=== PATIENT | male | born 1960 | race Caucasian/White ===

== ENCOUNTER 2018-09-08 05:43 | Inpatient (IN) ==
--- NOTE | 2018-09-04 14:08 | Anesthesiology Consultation ---
Date of Service September 04, 2018 Assessment & Plan (1) Encounter for pre-operative examination: Chart Review Chart Review: Acceptable Risk for Surgery and Patient seen in Pre Admission Testing Teaching & Discussion Instructed NPO after midnight before surgery, except medications with 15 cc of water. Medication instructions provided according to the PAT guidelines. History Surgery Operation Date: 09/08/18 07:55 Proposed Procedures p Left Ankle Removal of STAR Total Ankle Hardware, - Alvaro Mock DO s Fusion of Tibiotalar IT with Femoral Head Allograft, Subtalar Fusion Implantation Synthes Retrocalcaneal Nail, Application of Platelet-Rich Plasma - Alvaro Mock DO Height/Weight Height: 6 ft 3 in Weight: 100.3 kg Allergies Allergy/AdvReac Type Severity Reaction Status Date / Time pet dander AdvReac Unknown nasal Uncoded 09/04/18 13:34 congestion pollen AdvReac Unknown sneezing, Uncoded 09/04/18 13:34 watery eyes Medications Home Medications Medication Instructions Recorded Confirmed Last Taken multivitamin [Multiple Vitamins] 1 tab PO DAILY 09/04/18 09/04/18 Unknown Past Medical History Medical History Back problem 3 bulging discs L3, 4, 5 Fungus infection Fungal infection (not tinea) on exterior L cheek. Completed treatment and has had f/u with PCP. Residual annular erythema noted on L cheek. Nausea and vomiting after administration of anesthetic agent Osteoarthritis Seasonal allergies Past Surgical History Surgical History H/O shoulder surgery History of ankle surgery MULTIPLE / LEFT History of arthroscopy of left knee History of elbow surgery LEFT/HARDWARE AND SINCE REMOVED History of left ankle joint replacement History of repair of anterior cruciate ligament of left knee Past Anesthesia History No Family Hx of Anesthesia Complications and Other PONV History of PONV Yes Motion Sickness Screening History of Motion Sickness: No Social History Smoking Status: Never smoker Do You Dip or Chew Tobacco: No Hx Alcohol Use: Yes Alcohol type: beer alcohol intake frequency: other Alcohol Intake Frequency Comment: 30 PACK IN A WEEK, SLOWING DOWN Hx Substance Use: No substance use type: does not use Exercise / Class Metabolic Activity II 4-5 Yardwork/Stairs/Walk up hill (Denies CP or SOB with stairs, just lots of ankle pain.) Review of Systems Pt denies any recent chest pain, shortness of breath, palpitations, cough, fever or URI. Physical Exam Vital Signs BP: 121/79 P: 68bpm SPO2: 96% RA T: 97.6 F R: 16 ENMT Mouth: + dental restorations (Fake front upper R tooth) and + chipped teeth (front L upper small chip); no loose teeth Thyromental Distance: > or= 3.5 Finger Breadths (4) Mallampati Class: I Neck normal visual inspection and + facial hair (short trimmed goatee); neck extension not limited Respiratory normal respiratory effort Auscultation: lungs clear to auscultation bilaterally Cardiovascular Rate/Rhythm: regular rate and regular rhythm Heart Sounds: no murmur Vessels: no carotid bruit Extremities: no edema Skin ~3x5cm annular erythema on L cheek. Testing Electrocardiogram Date: 09/04/18 Findings: + NSR @ (61) Laboratory Results 09/04/18 14:30 Urine Color Yellow 09/04/18 Unknown Urine Appearance Clear (Clear) 09/04/18 Unknown Urine pH 8.0 (4.5-7.5) H 09/04/18 Unknown Ur Specific [place] 1.014 (1.000-1.030) 09/04/18 Unknown Urine Protein Negative (Negative) 09/04/18 Unknown Urine Glucose (UA) Negative (Negative) 09/04/18 Unknown Urine Ketones Negative (Negative) 09/04/18 Unknown Urine Nitrite Negative (Negative) 09/04/18 Unknown Ur Leukocyte Esterase Negative (Negative) 09/04/18 Unknown
[2018-09-04 15:44] LABS: Basophils # (auto) 0.04 K/uL (0-0.2); Basophils % (auto) 0.5 %; Eosinophils # (auto) 0.24 K/uL (0-0.5); Eosinophils % (auto) 3.2 %; Hematocrit (blood only) 45.5 % (42-52); Immature Granulocytes # (auto) 0.02 K/uL (0.00-0.02); Immature Granulocytes % (auto) 0.3 %; Lymphocytes # (auto) 1.91 K/uL (1.2-3.4); Lymphocytes % (auto) 25.6 %; Mean Corpuscular Hgb Conc 35.2 g/dL (32-36); Mean Corpuscular Volume 85.7 fL (80-100); Mean Platelet Volume 9.9 fL (7.4-10.4); Monocytes # (auto) 0.54 K/uL (0.11-0.59); Monocytes % (auto) 7.2 %; Neutrophils # (auto) 4.71 K/uL (1.4-6.5); Neutrophils % (auto) 63.2 %; Platelet Count 264 K/uL (130-400); RDW Coefficient of Variation 12.7 % (11.5-14.5); Red Blood Count 5.31 M/uL (4.7-6.1); White Blood Count 7.46 K/uL (4.8-10.8)
[2018-09-04 15:50] LABS: Appearance Urine Clear (Clear); Bilirubin Urine Negative (Negative); Blood Urine Negative (Negative); Color Urine Yellow; Glucose Urine UA Negative (Negative); Ketones Urine Negative (Negative); Leukocyte Esterase Urine Negative (Negative); Nitrite Urine Negative (Negative); Protein Urine Negative (Negative); Specific Gravity Urine 1.014 (1.000-1.030); Urobilinogen Urine Negative (Negative)
--- NOTE | 2018-09-05 13:35 | History & Physical Report ---
Date of Service September 05, 2018 Assessment & Plan (1) Aseptic loosening of prosthetic joint: Schedule left ankle removal STAR total ankle replacement, left ankle fusion with femoral head allograft, subtalar joint fusion, implantation of Synthes retrocalcaneal nail, application platelet rich plasma. All potential risks, benefits, complications, alternatives, and rehab have been discussed with the patient and he wishes to proceed. He will be scheduled for 4.5.19 with ASA 81 mg BID x 4 wks for DVT prophylaxis. (2) Ankle pain, left: (3) Osteoarthritis of left subtalar joint: History of Present Illness Chief Complaint: left ankle pain Primary Care Provider: Filiberto Lackey This is a patient that underwent a left STAR total ankle replacement in 2011. Recently, he started having increased left ankle pain. X-rays, CT, and bone scans have noted loosening of the components of the ankle replacement. He is now being set up for surgical removal of the implants and left ankle fusion. Allergies Allergy/AdvReac Type Severity Reaction Status Date / Time pet dander AdvReac Unknown nasal Uncoded 09/04/18 13:34 congestion pollen AdvReac Unknown sneezing, Uncoded 09/04/18 13:34 watery eyes Home Medications Home Medications Medication Instructions Recorded Confirmed Type multivitamin [Multiple Vitamins] 1 tab PO DAILY 09/04/18 09/04/18 History Past Med/Surg History Medical History Back problem 3 bulging discs L3, 4, 5 Fungus infection Fungal infection (not tinea) on exterior L cheek. Completed treatment and has had f/u with PCP. Residual annular erythema noted on L cheek. Nausea and vomiting after administration of anesthetic agent Osteoarthritis Seasonal allergies Surgical History H/O shoulder surgery History of ankle surgery MULTIPLE / LEFT History of arthroscopy of left knee History of elbow surgery LEFT/HARDWARE AND SINCE REMOVED History of left ankle joint replacement History of repair of anterior cruciate ligament of left knee Social History Preferred Language: Bruneian Communication Ability: Effective Lunchroom Monitor Required: No Beliefs That Will Affect Care: None Current Living Situation: Spouse Other Information That Helps Us Care for You: No Feels Safe at Home: Yes Smoking Status: Never smoker Hx Alcohol Use: Yes Hx Substance Use: No Physical Exam Constitutional: well developed and well nourished; no acute distress ENMT: external ear and nose normal, oropharynx normal Neck: trachea midline, no thyromegaly Respiratory: normal respiratory effort, lungs clear to auscultation Cardiovascular: Rate/Rhythm: regular rate and regular rhythm Heart Sounds: normal S1 and normal S2 Gastrointestinal (Abdomen): normal bowel sounds, soft, nontender, no hepatosplenomegaly Musculoskeletal: Shoulder: + joint line tenderness (left ankle: anterior and posterior ankle. Pain with PROM and AROM. ) Ankle: + effusion (left ankle), + surgical incision (well healed anterior left ankel incision) and + joint line tenderness (left ankle: anterior and posterior ankle. Pain with PROM and AROM. ); ankle normal to inspection, no deformity, no skin erythema and no ecchymosis Neurologic: normal touch/pain/proprioception Psychiatric: A+Ox3, euthymic affect Lymphatic: no cervical or axillary lymphadenopathy
[2018-09-08] MEDS ORDERED: LR 15ML/HR IV SCH (06:00)
[2018-09-08] MEDS ORDERED: SCOPOLAMINE 1.5 MG TDSY TD SCH (06:00)
[2018-09-08] MEDS ORDERED: ROPIVACAINE 0.5% 5 MG/ML 30 ML VIAL ONE (06:36)
[2018-09-08] MEDS ORDERED: PROPOFOL IV EMULSION 10 MG/ML 20 ML VIAL IV ONE (06:45)
[2018-09-08] MEDS ORDERED: MIDAZOLAM HCL 1 MG/ML 2ML VIAL ONE (06:45)
[2018-09-08] MEDS ORDERED: fentaNYL citrate 100 MCG/2 ML VIAL ONE ×3 (06:45→12:35)
[2018-09-08] MEDS ORDERED: CEFAZOLIN 3000MG 72.5 ML IV ONE (07:44)
[2018-09-08] MEDS ORDERED: BACITRACIN INJ 50,000 UNIT VIAL ONE (08:07)
[2018-09-08] MEDS ORDERED: THROMBIN 5000 UNITS KIT ONE ×2 (08:07→10:15)
[2018-09-08] MEDS ORDERED: CALCIUM CHLORIDE 10% 10 ML SYR IV ONE (08:08)
--- NOTE | 2018-09-08 08:43 | History & Physical Bridge Note ---
Date of Service September 08, 2018 History & Physical Bridge Note I have examined the patient, reviewed the History & Physical and in the interval since the performance of the History & Physical I have noted the following changes of clinical significance: no changes noted
[2018-09-08] MEDS ORDERED: BISACODYL 10 MG SUPP PR PRN (08:46)
[2018-09-08] MEDS ORDERED: METOCLOPRAMIDE HCL INJ 5 MG/ML 2 ML VIAL IV PRN (08:46)
[2018-09-08] MEDS ORDERED: ALUMINUM/MAGNESIUM SUSP 30 ML UDC PO PRN (08:46)
[2018-09-08] MEDS ORDERED: MAGNESIUM HYDROXIDE SUSP 30 ML UDC PO PRN (08:46)
[2018-09-08] MEDS ORDERED: NALOXONE HCL 0.4 MG/1 ML VIAL/CARP IV PRN (08:46)
[2018-09-08] MEDS ORDERED: ONDANSETRON INJ 2 MG/ML 2 ML VIAL IV PRN ×2 (08:46→09:16)
[2018-09-08] MEDS ORDERED: TAMSULOSIN HCL 0.4 MG CAP PO PRN (08:51)
[2018-09-08] MEDS ORDERED: MoRPHine SULFATE 2 MG/ML CARP IV PRN (08:56)
[2018-09-08] MEDS ORDERED: MULTIVITAMIN TAB PO SCH (09:00)
[2018-09-08] MEDS ORDERED: NO NSAIDS SCH (09:00)
[2018-09-08] MEDS ORDERED: fentaNYL citrate 100 MCG/2 ML VIAL IV PRN (09:16)
[2018-09-08] MEDS ORDERED: HYDROmorphone INJ 1 MG/ML SYRINGE IV PRN (09:16)
[2018-09-08] MEDS ORDERED: PROMETHAZINE HCL 12.5 MG in SODIUM CHLORIDE 0.9% 50 ML IV PRN (09:16)
[2018-09-08] MEDS ORDERED: ePHEDrine sulfate 50 MG/ML AMP IV PRN (09:16)
[2018-09-08] MEDS ORDERED: ATROPINE SULFATE 0.1 MG/ML 10ML SYR IV PRN (09:16)
[2018-09-08] MEDS ORDERED: DEXAMETHASONE SOD INJ 4 MG/ML VIAL ONE (11:10)
[2018-09-08] MEDS ORDERED: ONDANSETRON INJ 2 MG/ML 2 ML VIAL ONE ×2 (11:10→13:22)
[2018-09-08] MEDS ORDERED: CEFAZOLIN 250 MG/ML 1 GM VIAL ONE (13:22)
--- NOTE | 2018-09-08 13:43 | Fluoroscopy Report ---
INTRAOPERATIVE RADIOGRAPHS CLINICAL HISTORY: Left ankle surgery. Hardware removal. Fluoroscopy time: 154 seconds. FINDINGS: 4 spot fluoroscopic views of the left ankle are correlated with radiographs dated 2. There is chronic posttraumatic deformity of the distal fibula. A buttress plate along the lateral fibular cortex is unchanged dating back to 2011. Cortical lag screws previously seen in the medial ma lleolus have been removed. A left ankle arthroplasty device has been removed. An intramedullary nail is now seen extending from the mid to distal tibial shaft to the base of the calcaneus. There are 2 c ortical lag screws present within the tibial component of the nail, and 3 cortical lag screws are pre sent within the dorsal tarsal bones. The orthopedic hardware appears intact. Soft tissue edema and cruz bcutaneous gas are present within the hindfoot. IMPRESSION: Intraoperative images involving the left ankle as above. Electronically signed by: Ramon Javier M.D. 09/08/2018 1:42 PM
--- NOTE | 2018-09-08 14:11 | Post Operative Brief Note ---
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: (2) Osteoarthritis of left subtalar joint: (3) left distal tibial bone cyst (4) left talus bone cyst (5) retained hardware medial malleolus x2 screws (6) left ankle pain Procedure Operation Date: 09/08/18 07:55 Actual Procedures p Left Ankle Removal of STAR Total Ankle replacement hardware, Separate Incision Hardware Removal Screws x2 Medial Malleolus (Left) - Alvaro Mock DO s Tibiotalar Fusion with femoral head allograft/autograft/PRP, Subtalar Fusion with autograft/PRP, Femoral Head Allograft, Implantation Retrocalcaneal Nail, Application of Platelet-Rich Plasma(Left) - Alvaro Mock DO Surgeon Alvaro Mock DO Inspector [employer] Typewriter Wayne Ulloa PA-C Estimated Blood Loss 300 Findings Consistent with Post-Op Diagnosis Specimens Aerobic anaerobic Gram stain distal tibial cyst. Synovium and joint capsule left ankle. Left total ankle replacement components. Drains Hemovac Drain (10 FR TROCAR) Anesthesia Type General Regional Complications none Disposition Accompanied Patient To Recovery: No Disposition: Recovery Room Overlapping Procedure I was present for: the critical portions of procedure. I was immediately available: during the entire case.
--- NOTE | 2018-09-08 14:58 | XRay Report ---
XR ankle LT min 3V routine CLINICAL HISTORY: post op left ankle fusion COMPARISON: Left ankle radiographs May 05, 2012. FINDINGS: Fibular plate and screws are noted. Intramedullary linda fixating the subtalar and tibiotal ar joints is noted. A screw fixating the subtalar joint is present. The hardware is intact. There are surgical drain. There are skin petra. There are no unexpected radiopaque foreign bodies. IMPRESSION: Expected findings following left ankle internal fixation. Electronically signed by: Brandt Sanches M.D. 09/08/2018 2:56 PM
--- NOTE | 2018-09-08 15:22 | Anesthesiology Progress Note ---
Date of Service September 08, 2018 Anesthesia Post Procedure Vital Signs Vital Signs: Temp Pulse Pulse Resp BP BP Pulse Ox 09/08/18 15:15 74 9 L 144/85 H 100 09/08/18 15:10 84 18 145/87 H 99 09/08/18 15:05 80 14 138/89 100 09/08/18 15:00 78 13 135/92 100 09/08/18 14:57 72 6 L 145/88 H 100 09/08/18 14:55 77 13 150/97 H 100 09/08/18 14:54 36.6 C 82 16 145/88 H 100 09/08/18 14:51 77 21 167/105 H 99 09/08/18 14:50 82 20 99 09/08/18 14:46 83 16 155/91 H 100 09/08/18 14:45 77 19 100 09/08/18 14:40 74 8 L 144/92 H 100 09/08/18 14:35 76 9 L 147/93 H 100 09/08/18 14:31 71 12 149/91 H 100 09/08/18 14:30 79 16 100 09/08/18 14:26 77 20 153/95 H 100 09/08/18 14:25 82 15 100 09/08/18 14:20 83 12 154/98 H 100 09/08/18 14:17 83 18 125/84 100 09/08/18 14:16 36.4 C L 86 84 19 125/84 100 09/08/18 06:30 37 C 63 16 112/76 94 Pain Intensity Left Ankle: Pain Intensity: 4 Notes Mental Status: alert / awake / arousable and participated in evaluation Patient Amnestic to Procedure: Yes Nausea / Vomiting: adequately controlled Pain: adequately controlled Airway Patency, RR, SpO2: stable & adequate BP & HR: stable & adequate Hydration State: stable & adequate Anesthetic Complications: no major complications apparent and Pt Satisfied with anesthetic care Notes: block is functioning well
[2018-09-08] MEDS ORDERED: CHECK SCOPOLAMINE PATCH PLACEMENT SCH (16:00)
[2018-09-08] MEDS ORDERED: SODIUM CHLORIDE 0.9% 1000ML 1,000 ML IV SCH (16:00)
[2018-09-08] MEDS ORDERED: CEFAZOLIN 3000MG 72.5 ML IV SCH (17:00)
[2018-09-08 20:13] LABS: Hematocrit (blood only) 41.8 % (42-52); Hemoglobin 14.5 g/dL (14.0-18.0)
[2018-09-08] MEDS ORDERED: SENNA 8.6 MG TAB PO SCH (21:00)
[2018-09-08] MEDS: ASPIRIN 81 MG ECTAB PO SCH (21:23)
[2018-09-08] MEDS: DOCUSATE SODIUM 100 MG CAP PO SCH (21:23)
[2018-09-08] MEDS: ACETAMINOPHEN 500 MG TAB PO SCH (21:23)
[2018-09-09] MEDS: ACETAMINOPHEN 500 MG TAB PO SCH ×2 (05:40→12:51)
[2018-09-09 06:16] LABS: Hematocrit (blood only) 36.4 % (42-52); Hemoglobin 12.5 g/dL (14.0-18.0); Mean Corpuscular Hgb Conc 34.3 g/dL (32-36); Mean Corpuscular Volume 86.9 fL (80-100); Mean Platelet Volume 9.5 fL (7.4-10.4); Platelet Count 222 K/uL (130-400); RDW Coefficient of Variation 12.9 % (11.5-14.5); RDW Standard Deviation 41.3 fL (36.4-46.3); Red Blood Count 4.19 M/uL (4.7-6.1); White Blood Count 10.77 K/uL (4.8-10.8)
[2018-09-09 06:35] LABS: BUN Creatinine Ratio 14.3 (10-20); Calcium 8.1 mg/dl (8.5-10.1); Creatinine Clr Calc Pharmacy 113.3 ml/min; Est GFR (African American) 105.2; Est GFR (Non-African American) 90.8
[2018-09-09] MEDS: OXYCODONE HCL IR 5 MG TAB (IMMEDIATE RELEASE) PO PRN ×3 (07:56→12:51)
--- NOTE | 2018-09-09 08:30 | Orthopedic Progress Note ---
Date of Service September 09, 2018 Assessment & Plan (1) Ankle pain, left: Plan for PT and OT today. Nonweightbearing left lower extremity. Continue DVT prophylaxis with aspirin p.o. twice daily, SCDs and TANIKA hose on the opposite leg. Pain management with oxycodone and morphine currently. Discharge planning-plan for discharge to home today. Subjective Postop day 1 status post Tibiotalar Fusion, Subtalar Fusion, Femoral Head Allograft, Implantation Retrocalcaneal Nail, Application of Platelet-Rich Plasma Patient is currently lying in bed and is awake and alert. He has no complaints at this time. He states that the block is starting to wear off but his pain is minimal. He denies shortness of breath, chest pain, lightheadedness, nausea or vomiting. He is hoping to go home today. Physical Exam Vital Signs (Past 24 Hours): Last Vital Signs Temp 36.8 C 09/09/18 07:42 Pulse 67 09/09/18 07:42 Resp 18 09/09/18 07:42 BP 106/68 09/09/18 07:42 Pulse Ox 97 09/09/18 07:42 Physical Exam: Dressing/splint is clean dry and intact. Toes are pink and warm and mobile. He has decreased sensation in his toes due to his current block still working. He states that he can feel some slight pain on the dorsum of the foot that started this morning noting that his block is starting to slowly wear off. Latest drainage from his Hemovac was 50 mL's. Results & Data Laboratory Results 09/09/18 09/09/18 09/09/18 Range/Units 06:04 06:04 06:04 WBC 10.77 (4.8-10.8) K/uL RBC 4.19 L (4.7-6.1) M/uL Hgb 12.5 L (14.0-18.0) g/dL Hct 36.4 L (42-52) % MCV 86.9 (80-100) fL MCH 29.8 (25-34) pg MCHC 34.3 (32-36) g/dL RDW Std Deviation 41.3 (36.4-46.3) fL RDW Coeff of Jannette 12.9 (11.5-14.5) % Plt Count 222 (130-400) K/uL MPV 9.5 (7.4-10.4) fL Sodium 139 (136-145) mmol/L Potassium 4.0 (3.5-5.1) mmol/L Chloride 106 (98-107) mmol/L Carbon Dioxide 27 (21-32) mmol/L Anion Gap 6.0 (3-11) BUN 13 (7-18) mg/dl Creatinine 0.93 (0.6-1.4) mg/dl Est Cr Clr Drug Dosing 113.3 ml/min Est GFR ( Amer) 105.2 Est GFR (Non-Af Amer) 90.8 BUN/Creatinine Ratio 14.3 (10-20) Glucose 109 H (70-99) mg/dl Calcium 8.1 L (8.5-10.1) mg/dl Hepatitis C Ab Screen Pending 09/08/18 Range/Units 20:05 WBC (4.8-10.8) K/uL RBC (4.7-6.1) M/uL Hgb 14.5 (14.0-18.0) g/dL Hct 41.8 L (42-52) % MCV (80-100) fL MCH (25-34) pg MCHC (32-36) g/dL RDW Std Deviation (36.4-46.3) fL RDW Coeff of Jannette (11.5-14.5) % Plt Count (130-400) K/uL MPV (7.4-10.4) fL Sodium (136-145) mmol/L Potassium (3.5-5.1) mmol/L Chloride (98-107) mmol/L Carbon Dioxide (21-32) mmol/L Anion Gap (3-11) BUN (7-18) mg/dl Creatinine (0.6-1.4) mg/dl Est Cr Clr Drug Dosing ml/min Est GFR ( Amer) Est GFR (Non-Af Amer) BUN/Creatinine Ratio (10-20) Glucose (70-99) mg/dl Calcium (8.5-10.1) mg/dl Hepatitis C Ab Screen
[2018-09-09] MEDS: DOCUSATE SODIUM 100 MG CAP PO SCH (08:54)
[2018-09-09] MEDS: ASPIRIN 81 MG ECTAB PO SCH (08:55)
[2018-09-09] MEDS ORDERED: MULTIVITAMIN TAB PO SCH (09:00)
--- NOTE | 2018-09-09 09:56 | Anesthesiology Progress Note ---
Date of Service September 09, 2018 Anesthesia Post Procedure Vital Signs Vital Signs: Temp Pulse Pulse Resp BP BP Pulse Ox 09/09/18 07:42 36.8 C 67 18 106/68 97 09/09/18 03:49 36.6 C 75 18 102/66 98 09/08/18 22:49 36.8 C 79 18 110/70 95 09/08/18 18:33 36.7 C 93 H 18 133/83 98 09/08/18 17:27 36.5 C 88 20 129/87 100 09/08/18 16:35 36.5 C 83 18 144/85 H 100 09/08/18 16:00 36.5 C 79 16 136/85 99 09/08/18 15:30 36.4 C L 88 16 125/86 95 09/08/18 15:15 74 9 L 144/85 H 100 09/08/18 15:10 84 18 145/87 H 99 09/08/18 15:05 80 14 138/89 100 09/08/18 15:00 78 13 135/92 100 09/08/18 14:57 72 6 L 145/88 H 100 09/08/18 14:55 77 13 150/97 H 100 09/08/18 14:54 36.6 C 82 16 145/88 H 100 09/08/18 14:51 77 21 167/105 H 99 09/08/18 14:50 82 20 99 09/08/18 14:46 83 16 155/91 H 100 09/08/18 14:45 77 19 100 09/08/18 14:40 74 8 L 144/92 H 100 09/08/18 14:35 76 9 L 147/93 H 100 09/08/18 14:31 71 12 149/91 H 100 09/08/18 14:30 79 16 100 09/08/18 14:26 77 20 153/95 H 100 09/08/18 14:25 82 15 100 09/08/18 14:20 83 12 154/98 H 100 09/08/18 14:17 83 18 125/84 100 09/08/18 14:16 36.4 C L 86 84 19 125/84 100 Pain Intensity Left Ankle: Pain Intensity: 4 Notes Mental Status: alert / awake / arousable and participated in evaluation Patient Amnestic to Procedure: Yes Nausea / Vomiting: adequately controlled Pain: adequately controlled Airway Patency, RR, SpO2: stable & adequate BP & HR: stable & adequate Hydration State: stable & adequate Anesthetic Complications: no major complications apparent and Pt Satisfied with anesthetic care
--- NOTE | 2018-09-12 02:06 | Operative Report ---
DATE OF OPERATION: 09/08/2018 PREOPERATIVE DIAGNOSES: 1. 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 2. Degenerative joint disease, subtalar joint. 3. Tibial bone cyst. 4. Talar bone cyst. 5. Retained hardware x2 screws in the medial malleolus. 6. Left ankle pain. POSTOPERATIVE DIAGNOSES: 1. 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 2. Degenerative joint disease, subtalar joint. 3. Tibial bone cyst. 4. Talar bone cyst. 5. Retained hardware x2 screws in the medial malleolus. 6. Left ankle pain. PROCEDURE: 1. Left ankle revision fusion with femoral head allograft/autograft/platelet rich plasma concentrate. 2. Subtalar fusion with autograft/platelet rich plasma concentrate. 3. Application of retrocalcaneal nail. 4. Removal of total ankle components, left ankle. 5. Removal of screws x2 from the medial malleolus. 6. Application of platelet rich plasma concentrate soft tissues. SURGEON: Alvaro Mock DO INDUSTRIAL/ORGANIZATIONAL PSYCHOLOGIST: Wayne Ulloa PA-C who was present for patient positioning, sterile prep and drape, management of retractors and instruments. He was present through the critical portions of the case including wound closure, application of sterile dressing and transport of the patient to recovery. ANESTHESIA: General LMA with popliteal and adductor canal block. SPECIMENS: STAR total ankle components. Aerobic, anaerobic, Gram stain from the tibial bone cyst. DRAINS: Hemovac x1. COMPLICATIONS: None. BLOOD LOSS: 300 mL PERTINENT HISTORY: versus a 58-year-old gentleman who has undergone a successful STAR total ankle replacement approximately 7-8 years prior. He had high satisfaction rate for the first 4-5 years and then developed progressive worsening pain despite bracing and other conservative measures. He was seen in second opinion at [facility] and the provider recommended either revision total ankle replacement versus removal of hardware and ankle fusion and subtalar fusion. The patient opted to have the retrocalcaneal nail placed with fusion of the tibiotalar and subtalar joints. The patient then presented back to clinic in [place], at which point I had lengthy discussion with the patient and we decided to proceed with the above noted procedure as indicated. All potential risks, benefits, complications, alternatives, rehab, potential for incomplete relief of symptoms, need for further surgery, DVT, PE, , persistent pain, swelling, scarring, weakness, neurovascular injury, wound complications, hardware failure, nonunion, malunion were discussed with the patient. The patient decided to proceed with the procedure as indicated. DESCRIPTION OF PROCEDURE: The patient had a popliteal block and adductor canal block in the preop holding area and taken to the operative suite, placed supine on the operating room table. After I reviewed consent and wished operative site, the patient was anesthetized, LMA was placed. Tourniquet was placed high on left thigh over cast padding. Left lower extremity was sterilely prepped and draped in the usual fashion, elevated and exsanguinated with Esmarch bandage, tourniquet inflated to 350 mmHg. Next, a #15 blade scalpel was used to make an incision over the medial malleolus. Incision was deepened through subcutaneous tissue. Meticulous hemostasis was achieved with electrocautery. The 2 screws in the medial malleolus were then removed with a screwdriver. The holes were curetted and irrigated with sterile saline until clear. Next, a #15 blade scalpel was used to make an incision along the lateral aspect of the hindfoot centered over the subtalar joint from the base of the fourth metatarsal to the base of the fibula. The incision was deepened through subcutaneous tissue. Meticulous hemostasis was achieved with cautery. Full thickness skin flaps were developed. The incision was then deepened through the subcutaneous tissue to the level of the extensor digitorum brevis, which was then split and the subtalar joint was then opened #15 blade scalpel. Careful dissection was performed through develop soft tissue planes and then Harjeet rakes were placed in the incision opening the subtalar joint. Next, the subtalar joint was entered and a lamina mica spreader was placed to open the subtalar joint. Subtalar joint surfaces were then fully prepared and prepped using a rongeur and curettes to remove any residual articular cartilage down to the level of the subchondral bone. Next, this was irrigated with sterile saline until clear and the joint surface was then further prepared using a 2 mm drill bit to make multiple drill holes in the subtalar joint and a 6-mm osteotome was then used to fish-scale the articular surfaces to increase surface area. Next, attention then directed to the anterior aspect of the ankle, #15 blade scalpel was used to make an incision along the anterior incision site of the prior ankle replacement incision was deepened through subcutaneous tissue. Meticulous hemostasis was achieved with electrocautery and the scar was then dissected through to the level of the fascia. The fascia was then incised over the extensor hallucis longus, which was then retracted laterally. Careful dissection was then performed with Metzenbaum scissors to define the neurovascular bundle, including the dorsalis pedis and deep peroneal nerve. He was then transported laterally and retracted with a house retractor. Next, the superficial peroneal nerve was also marked with marking pen, a skin marker and then retracted laterally. Next, the joint capsule was then incised in line with skin incision and then careful dissection was performed with #15 blade scalpel, elevating skin flaps, medial and lateral. There is a thickened joint capsule, which was then debrided with a #15 blade scalpel and a large bone cyst was encountered in the anterior distal aspect of the tibia. This was then taken for specimen and sent for aerobic and anaerobic, Gram stain, cultures. After the cyst was evacuated, it was curettaged with a moderate sized curette and irrigated with sterile saline until clear. The components noted to be stable, a large cyst. Next, the talar component was then loosened with a 4 mm osteotome and mallet, elevated and removed. At the end of the talus was noted be a large bone cyst. These were curetted with a moderate-sized curette and irrigated until clear. Next, the tibial base plate was then elevated with a 4 mm osteotome and mallet and then removed. These components and passed off. The polyethylene was also removed with a Desmond. Next, the joint surface was then curetted until a stable bone was encountered and a careful dissection was performed to free soft tissue medially and laterally and then 2 Army-Pooler retractors were placed in the anterior incision followed by use of sequential hip reamers to create a spherical space. A 47 mm femoral head allograft was then opened and placed in sterile saline for the 3-time soaking procedure. Next, a caliper was used to measure the head, confirming the size and then sequential reaming was performed in the tibiotalar space with a 44 mm reamer and expanding to a 48 mm reamer. The reamings from the 47 and a 48 mm hip reamers were then saved for autograft. Next, multiple 2 mm drill holes were drilled circumferentially around spherical femoral head allograft. Platelet rich plasma concentrate was harvested from the patient's venous blood and prepared as per protocol. Next, the PRP was then injected into the holes of the femoral head allograft and then a slurry of autograft was placed around the femoral head allograft and then also in the space in the tibiotalar joint. This fluid was also placed into the subtalar joint. The platelet rich plasma concentrate was also placed in the subtalar joint. Next, the femoral head allograft was then impacted into the tibiotalar fusion space and noted anatomic reduction and fixation with neutral alignment of the ankle at 90 degrees. Slight dorsiflexion was performed so actually it was dorsiflexed approximately 3 degrees from neutral dorsiflexion. Next, a #15 blade scalpel was used to make an incision in the plantar aspect of the calcaneus under live fluoroscopic assistance. The foot was held in neutral alignment at the subtalar joint to allow for eventual valgus, placed in by the components and then a guide pin was placed through the calcaneus through the talus, through the subtalar joint, into the tibiotalar joint through the femoral head allograft and then in the tibia centered in the AP and lateral projections. Once this was accomplished, an opening reamer was then performed using protective guide through the plantar aspect of the heel and this was then driven up to the level of the residual talar bone. Next, a 5-mm drill was then passed through the allograft into the tibia under live fluoroscopic assistance. This was then followed by placement of a ball-tip guide linda and sequential up reaming was performed to 13.5 mm and a Synthes 12 mm x 240 mm retrocalcaneal nail was placed under live fluoroscopic assistance, confirmed in AP and lateral projections. Once this was set at appropriate level of the plantar aspect of the calcaneus, a #15 blade scalpel was used to make an incision in the posterior aspect of the calcaneus followed by placement of an 80 mm spiral blade followed by placement of a 6 mm screw locking the calcaneal portion of the fusion. Next, using an impaction using a large mallet, subtalar joint was then compressed and a talar locking screw was placed using the locking jig and the small stab incision in the posterior lateral aspect of the ankle. This was performed in live fluoroscopic assistance. Again, the compression was then performed using a large mallet to compress the tibiotalar joint and the femoral head allograft. Next, two locking screws were placed from medial to lateral placed in a live fluoroscopic assistance through 2 small stab incisions medially. Once the construct was completely compressed and aligned anatomic reduction and fixation of the tibiotalar, subtalar and femoral head allograft had all been achieved. Gentle irrigation performed with sterile normal saline and then a final irrigation, the final implantation of residual bone grafting anteriorly, medially, laterally at the tibiotalar joint and then also the subtalar joint was then performed followed by application platelet rich plasma concentrate. Next, a #10-Kyrgyz single lumen Hemovac drain was placed in the anterior aspect of the ankle joint capsule exiting percutaneously the anterior aspect of the ankle slightly proximal to the incision. The joint capsule was closed using #1 Vicryl, followed by application platelet rich plasma concentrate and then closure of the fascia anterior with 2-0 Vicryl. Next, the dermis was closed using buried interrupted 3-0 Monocryl and a running severed subcuticular Monocryl was then placed followed by Dermabond for the skin anteriorly. The lateral incision was then addressed. Extensor digitorum brevis was then closed using 2-0 Vicryl. The dermis was closed using 3-0 Vicryl, skin closed with 4-0 nylon. Next, the jig was removed from the plantar aspect foot and a locking cap was placed plantar, followed by irrigation skin petra. The posterior skin incision was then irrigated with sterile saline injected with PRP and the closed using skin petra. Final radiographs were obtained in AP and lateral projections and the sterile compressive dressing and bulky Lew Frank plaster splint was applied overwrapped with an Howard wrap. The tourniquet was released, the patient was awakened and taken to recovery in stable condition. I attest to the content of the Intraoperative Record and any orders documented therein. Any exception s are noted below.
--- NOTE | 2018-09-21 18:53 | Discharge Summary ---
Date of Service September 21, 2018 Admission HPI Per Admitting Provider This is a patient that underwent a left STAR total ankle replacement in 2011. Recently, he started having increased left ankle pain. X-rays, CT, and bone scans have noted loosening of the components of the ankle replacement. He is now being set up for surgical removal of the implants and left ankle fusion. Principal Diagnosis left ankle failed total ankle replacement Discharge Exam Constitutional well developed and well nourished; no acute distress ENMT external ear and nose normal, oropharynx normal Neck trachea midline, no thyromegaly Respiratory normal respiratory effort, lungs clear to auscultation Cardiovascular Rate/Rhythm: regular rate and regular rhythm Heart Sounds: normal S1 and normal S2 Gastrointestinal (Abdomen) normal bowel sounds, soft, nontender, no hepatosplenomegaly Musculoskeletal Ankle: + surgical incision (well healed anterior left ankel incision); ankle normal to inspection, no deformity, no skin erythema and no ecchymosis Left ankle: splint is clean/dry/intact. Well aligned left ankle. Neurologic normal touch/pain/proprioception Psychiatric A+Ox3, euthymic affect Lymphatic no cervical or axillary lymphadenopathy Discharge Data Allergies Allergy/AdvReac Type Severity Reaction Status Date / Time pet dander AdvReac Mild nasal Uncoded 09/08/18 06:27 congestion pollen AdvReac Mild sneezing, Uncoded 09/08/18 06:27 watery eyes Consultations 09/08/18 08:48 Consult Case Management - Discharge Planning Routine Procedures Performed Operation Date: 09/08/18 07:55 Actual Procedures p Left Ankle Removal of STAR Total Ankle Hardware, Seperate Incision Hardware Removal Screws x2 Medial Malous (Left) - Alvaro Mock DO s Tibiotalar Fusion, Subtalar Fusion, Femoral Head Allograft, Implantation Retrocalcaneal Nail, Application of Platelet-Rich Plasma(Left) - Alvaro Mock DO Ordered Studies 09/08/18 05:00 US - OR guided needle placemen Routine 09/08/18 07:55 FL ankle LT 2V Routine FL fluoroscopy <1hr Routine Hospital Course (1) Ankle pain, left: Patient underwent the above noted procedure. He progressed well with pain control and remaining NWB on the LLE. Below were his plans for the day of discharge. Plan for PT and OT today. Nonweightbearing left lower extremity. Continue DVT prophylaxis with aspirin p.o. twice daily, SCDs and TANIKA hose on the opposite leg. Pain management with oxycodone and morphine currently. Discharge planning-plan for discharge to home today. Total Time Total Time Spent Total Time Spent (In Minutes): 20 Total Time Includes: Examination of the Patient, Discharge Planning and Medication Reconciliation Discharge Plan Discharge Items Patient Disposition: Home - Self-Care Reason For Visit: Left Ankle Retained Hardware, Primary Osteoarthrit Discharge Diagnosis: left ankle failed total ankle replacement Discharge Goals: Decrease discomfort and Improve function Activity: Per 'Additional Instructions' section Non-emergency contact: Surgeon Call non-emergency contact if: your pain is not controlled, your pain is worsening and your temperature is above 101.5 Follow-up/Referrals: Filiberto Lackey PA-C [Primary Care Provider] - Diet: Regular Addtl Provider Instructions: ACTIVITY RECOMMENDATIONS: Limitations: No weight bearing to affected limb at all times. SPECIAL CARE INSTRUCTIONS: * Take Aspirin 81 mg every 12 hours for the next 6 weeks for blood clot prophylaxis. * Some drainage onto the dressing is normal and is no cause for alarm. * Some swelling is natural especially after walking. * When resting, keep your foot elevated above the level of your heart. * Call [facility] if you notice: -Increased drainage -Fever over 101.5 degrees F -Severe constant pain BANDAGE: * Leave bandage/cast in place unless otherwise directed. * Keep bandage/cast dry at all times. FOLLOW UP VISIT WITH DR. MOCK If appointment is not already scheduled: Please call [facility] after you get home today to schedule a follow-up appointment for [address] Mock at . Prescriptions: New aspirin [Ecotrin Low Strength] 81 mg Tablet,Delayed Release (Dr/Ec) 81 mg PO BID 30 Days Qty: 60 RF: 0 oxycodone-acetaminophen [Percocet] 5-325 mg tablet 1 - 2 tab PO Q6H PRN (Reason: pain) Qty: 30 RF: 0 Continued multivitamin [Multiple Vitamins] Tablet 1 tab PO DAILY RF: 0 Stand-Alone Forms: [employer], Opioid Pain Management Discharge Orders: Discharge Order (Routine); Ordered 09/09/18 Ordered By: Hussain Ruiz Admission Data Admit Date/Time: 09/08/18 08:48 Attending Provider: Alvaro Mock Admit Provider: Alvaro Mock Primary Care Provider: Filiberto Lackey Other Providers: Hernan Orta ; Jinny Gutierrez V ; Vidhya Garcia ; Wayne Ulloa ; Hussain Ruiz ; Nancy Eden Service: Surgical Services Other Interventions: Discharge Summary Assessment (RN) Last Done: 09/09/18 12:58 DC Date/Time DO NOT enter until pt leaves facility: 09/09/18 13:00
== END 2018-09-09 13:00 | disposition home or self-care (01) | DRG 494 ==
LOC: ASU 05:43 → 3E 08:48